=== PATIENT | female | born 1965 | race Caucasian/White ===

== ENCOUNTER → 2016-07-31 | Outpatient (CLI) | payer BC ==
--- NOTE | 2016-08-01 10:12 | MM ---
Reason for exam: screening (asymptomatic). Last mammogram was performed 1 year and 2 months ago. History: Patient had first child at age 31. Family history of breast cancer in mother at age 30. Took hormonal contraceptives beginning at age 16. Physical Findings: A clinical breast exam by your physician is recommended on an annual basis and results should be correlated with mammographic findings. MG Screening Mammo w CAD Bilateral CC and MLO view(s) were taken. Prior study comparison: May 21, 2015, bilateral MG screening mammo w CAD. March 30, 2014, bilateral MG screening mammo w CAD. March 27, 2013, bilateral digital screening mammo w/CAD. The breast tissue is heterogeneously dense. This may lower the sensitivity of mammography. There is no discrete abnormality. ASSESSMENT: Negative, BI-RAD 1 RECOMMENDATION: Routine screening mammogram of both breasts in 1 year.
== END | disposition home or self-care (01) ==
LOC: RADMAMWWP 16:26
PROVIDERS: ATTEND Obstetrics & Gynecology
DX: Z12.31 Encounter for screening mammogram for malignant neoplasm of breast (principal)

== ENCOUNTER → 2017-12-27 | Outpatient (CLI) | payer BC ==
--- NOTE | 2017-12-31 10:13 | MM ---
Reason for exam: screening (asymptomatic). Last mammogram was performed 1 year and 5 months ago. History: Patient had first child at age 31. Family history of breast cancer in mother at age 30. Took hormonal contraceptives beginning at age 16. Physical Findings: A clinical breast exam by your physician is recommended on an annual basis and results should be correlated with mammographic findings. MG Screening Mammo w CAD Bilateral CC and MLO view(s) were taken. Prior study comparison: July 31, 2016, bilateral MG screening mammo w CAD. May 25, 2015, left breast MG 3d work up w/cad LT. The breast tissue is heterogeneously dense. This may lower the sensitivity of mammography. There is no discrete abnormality. No significant changes when compared with prior studies. ASSESSMENT: Negative, BI-RAD 1 RECOMMENDATION: Routine screening mammogram of both breasts in 1 year.
== END | disposition home or self-care (01) ==
LOC: RADMAMWWP 16:12
PROVIDERS: ATTEND Family Medicine
DX: Z12.31 Encounter for screening mammogram for malignant neoplasm of breast (principal)
CPT/HCPCS: 77067

== ENCOUNTER 2018-02-20 09:33 | Day surgery (SDC) | payer BC ==
[2018-02-15 12:07] VITALS: BMI 22.2
[~2018-02-20 09:33] MED LIST: LACTATED RINGERS 1,000 ML IV SCH
--- NOTE | 2018-02-20 09:34 | P.GSHP ---
History of Present Illness H&P Date: 02/20/18 CHIEF COMPLAINT: Colon screen HISTORY OF PRESENT ILLNESS: The patient is a 52-year-old female who presents for colon screen. Lower endoscopy was offered for further evaluation and management. PAST MEDICAL HISTORY: Please see list. PAST SURGICAL HISTORY: Please see list. MEDICATIONS: Please see list. ALLERGIES: Please see list. SOCIAL HISTORY: No illicit drug use FAMILY HISTORY: No reports of Crohn disease or ulcerative colitis. REVIEW OF ORGAN SYSTEMS: CONSTITUTIONAL: No reports of fevers or chills. PHYSICAL EXAM: VITAL SIGNS: Stable GENERAL: Well-developed pleasant in no acute distress. HEENT: No scleral icterus. Extraocular movements grossly intact. Moist buccal mucosa. NECK: Supple without lymphadenopathy. CHEST: Unlabored respirations. Equal bilateral excursions. CARDIOVASCULAR: Regular rate and rhythm. Distal 2+ pulses. ABDOMEN: Soft, nontender, nondistended. MUSCULOSKELETAL: No clubbing, cyanosis, or edema. ASSESSMENT: 1. Colon screen. PLAN: 1. Recommend proceeding with a lower endoscopy Past Medical History Past Medical History: No Reported History Additional Past Medical History / Comment(s): SCREENING History of Any Multi-Drug Resistant Organisms: None Reported Past Surgical History: No Surgical Hx Reported Past Anesthesia/Blood Transfusion Reactions: No Reported Reaction Smoking Status: Never smoker - Past Family History Mother Family Medical History: No Reported History Medications and Allergies Home Medications Medication Instructions Recorded Confirmed Type No Known Home Medications 02/15/18 02/15/18 History Allergies Allergy/AdvReac Type Severity Reaction Status Date / Time No Known Allergies Allergy Verified 02/15/18 12:03
[2018-02-20 09:59] VITALS: RESP 16; TEMP 98
[2018-02-20] MEDS ORDERED: PROPOFOL 10 MG/ML 20 ML VIAL IV ONE (11:05)
[2018-02-20] MEDS ORDERED: LIDOCAINE 1% INJ 10MG/ML (20 ML MDV) ONE (11:05)
[2018-02-20 12:04] VITALS: BP 117/65; PULSE 64
--- NOTE | 2018-02-20 12:09 | P.PCN ---
Date of Procedure: 02/20/18 Description of Procedure: PREOPERATIVE DIAGNOSIS: Colonoscopy screening, first POSTOPERATIVE DIAGNOSIS: Colonoscopy screening, first Rectal polyp Sigmoid colon polyp OPERATION: Colonoscopy to the ileocecal valve and appendiceal orifice. Colonoscopy with multiple cold forceps biopsies. SURGEON: Caryn Thomas MD. ANESTHESIA: MAC. INDICATIONS: The patient is a 52-year-old female who presents for colonoscopy screening. Benefits and risks were described and informed consent was obtained. DESCRIPTION OF PROCEDURE: The patient had undergone Gatorade, MiraLAX and Dulcolax prep. She had been brought into the operating room and laid in the left lateral decubitus position. After adequate intravenous sedation, the rectum was examined with 2% lidocaine jelly. No external hemorrhoids were encountered. The rectal tone was within normal limits. No lesions were palpated in the rectal vault. An Olympus colonoscope was advanced until the ileocecal valve and appendiceal orifice were clearly viewed. The prep was fair with visualization of the mucosal folds. The scope was removed with visualization of each mucosal fold. No scattered diverticulosis was encountered. Colonic polyps were cold forcep biopsy. No evidence of focal colitis was found. Retroflexion of the scope demonstrated no internal hemorrhoids. The colon was desufflated. The patient had tolerated the procedure well. Withdrawal time was over 6 minutes. FINDINGS: No internal hemorrhoids No external hemorrhoids No arteriovenous malformations. Sigmoid diverticulosis. No focal colitis. Removal of 2 polyps: - Cold forceps biopsy at 20 cm from the anal verge, 4 mm polyp, sigmoid colon polyp - Cold forceps biopsy at 5 cm from the anal verge, 5 mm polyp, rectal polyp RECOMMENDATIONS: Lower endoscopy in 3 years2020 Plan - Discharge Summary New Discharge Prescriptions: No Action No Known Home Medications Discharge Medication List No Known Home Medications 02/15/18 [History] Follow up Appointment(s)/Referral(s): Caryn Thomas MD [STAFF PHYSICIAN] - As Needed Patient Instructions/Handouts: Colorectal Polyps (DC) Activity/Diet/Wound Care/Special Instructions: Repeat colonoscopy 3 years, 2020 Discharge Disposition: HOME SELF-CARE
== END 2018-02-20 12:29 | disposition home or self-care (01) ==
LOC: ORWHC2ENDO 09:33
PROVIDERS: ATTEND Surgery Plastic and Reconstructive Surgery
DX: Z12.11 Encounter for screening for malignant neoplasm of colon (principal); D12.5 Benign neoplasm of sigmoid colon; K62.1 Rectal polyp
CPT/HCPCS: 88305; 45380; J2001; J2704

== ENCOUNTER → 2019-05-06 | Outpatient (CLI) | payer BC ==
--- NOTE | 2019-05-07 11:32 | MM ---
Reason for exam: screening (asymptomatic). Last mammogram was performed 1 year and 4 months ago. History: Patient is postmenopausal and had first child at age 31. Family history of breast cancer in mother at age 30. Took hormonal contraceptives beginning at age 16. Physical Findings: A clinical breast exam by your physician is recommended on an annual basis and results should be correlated with mammographic findings. MG Screening Mammo w CAD Bilateral CC and MLO view(s) were taken. Prior study comparison: December 27, 2017, bilateral MG screening mammo w CAD. July 31, 2016, bilateral MG screening mammo w CAD. The breast tissue is heterogeneously dense. This may lower the sensitivity of mammography. Focal asymmetry lower inner left breast 8 o'clock 3cm from nipple. ASSESSMENT: Incomplete: need additional imaging evaluation, BI-RAD 0 RECOMMENDATION: Special view mammogram of the left breast. If lesion persists on supplemental views, image directed ultrasound is recommended. [facility] will attempt to contact patient to return for supplemental views and ultrasound if indicated.
== END | disposition home or self-care (01) ==
LOC: RADMAMWWP 15:38
PROVIDERS: ATTEND Family Medicine
DX: Z12.31 Encounter for screening mammogram for malignant neoplasm of breast (principal)
CPT/HCPCS: 77067

== ENCOUNTER → 2019-07-09 | Outpatient (CLI) | payer BC ==
--- NOTE | 2019-07-16 09:28 | MM ---
Reason for exam: additional evaluation requested from abnormal screening. Last mammogram was performed 2 months ago. History: Patient is postmenopausal and had first child at age 31. Family history of breast cancer in mother at age 30. Took hormonal contraceptives beginning at age 16. Physical Findings: Nurse did not find any significant physical abnormalities on exam. MG Work Up Mamm w CAD LT Spot compression CC, spot compression MLO, and LM view(s) were taken of the left breast. Prior study comparison: May 06, 2019, bilateral MG screening mammo w CAD. December 27, 2017, bilateral MG screening mammo w CAD. The breast tissue is heterogeneously dense. This may lower the sensitivity of mammography. Asymmetric breast tissue in the left breast not changed from 2016. No distinct lesion persists on additional views. These results were verbally communicated with the patient and result sheet given to the patient on 07/09/19. ASSESSMENT: Negative, BI-RAD 1 RECOMMENDATION: Return to routine screening mammogram schedule for both breasts.
== END | disposition home or self-care (01) ==
LOC: RADMAMWWP 08:47
PROVIDERS: ATTEND Family Medicine
DX: R92.8 Other abnormal and inconclusive findings on diagnostic imaging of breast (principal)
CPT/HCPCS: 77065

== ENCOUNTER → 2020-08-06 | Outpatient (CLI) | payer BC ==
--- NOTE | 2020-08-09 11:09 | MM ---
Reason for exam: screening (asymptomatic). Last mammogram was performed 1 year and 1 month ago. History: Patient is postmenopausal and had first child at age 31. Family history of breast cancer in maternal aunt at age 30. Took hormonal contraceptives for 14 years beginning at age 16. Physical Findings: A clinical breast exam by your physician is recommended on an annual basis and results should be correlated with mammographic findings. MG 3D Screening Mammo W/Cad Bilateral CC and MLO view(s) were taken. Prior study comparison: July 09, 2019, left breast MG work up mamm w CAD LT. May 06, 2019, bilateral MG screening mammo w CAD. The breast tissue is heterogeneously dense. This may lower the sensitivity of mammography. There is no discrete abnormality. No significant changes when compared with prior studies. ASSESSMENT: Negative, BI-RAD 1 RECOMMENDATION: Routine screening mammogram of both breasts in 1 year.
== END | disposition home or self-care (01) ==
LOC: RADMAMWWP 07:30
PROVIDERS: ATTEND Family Medicine
DX: Z12.31 Encounter for screening mammogram for malignant neoplasm of breast (principal); Z78.0 Asymptomatic menopausal state; Z80.3 Family history of malignant neoplasm of breast
CPT/HCPCS: 77063; 77067

== ENCOUNTER → 2022-02-07 | Outpatient (CLI) | payer BC ==
--- NOTE | 2022-02-08 07:43 | MM ---
Reason for Exam: Screening (asymptomatic). Last mammogram was performed 1 year(s) and 6 month(s) ago. Patient History: Menarche at age 12. First Full-Term at age 31. Late child-bearing (after 30). Postmenopausal. Patient has history of breast feeding. Hormonal Contraceptives for 14 years from age 16 until age 30. Maternal aunt had breast cancer, age 30. Risk Values: Erlinda 5 year model risk: 1.7%. NCI Lifetime model risk: 10.9%. Prior Study Comparison: 03/30/2014 Bilateral Screening Mammogram, [facility]. 05/21/2015 Bilateral Screening Mammogram, [facility]. 05/25/2015 Left Diagnostic Mammogram, [facility]. 07/31/2016 Bilateral Screening Mammogram, [facility]. 12/27/2017 Bilateral Screening Mammogram, [facility]. 05/06/2019 Bilateral Screening Mammogram, [facility] 07/09/2019 Left Diagnostic Mammogram, [facility]. 08/06/2020 Bilateral Screening Mammogram, [facility]. Tissue Density: The breast tissue is heterogeneously dense. This may lower the sensitivity of mammography. Findings: Analyzed By CAD. There is no suspicious group of microcalcifications or new suspicious mass in either breast. Overall Assessment: Negative, BI-RAD 1 Management: Screening Mammogram of both breasts in 1 year. Some advise bilateral breast ultrasound surveillance in patients with background dense tissue. A clinical breast exam by your physician is recommended on an annual basis and results should be correlated with mammographic findings. Electronically signed and approved by: Mitch Hennessy M.D.
== END | disposition home or self-care (01) ==
LOC: RADMAMWWP 07:02
PROVIDERS: ATTEND Family Medicine
DX: Z12.31 Encounter for screening mammogram for malignant neoplasm of breast (principal); Z78.0 Asymptomatic menopausal state; Z80.3 Family history of malignant neoplasm of breast
CPT/HCPCS: 77063; 77067

== ENCOUNTER 2022-03-30 06:41 | Day surgery (SDC) | payer BC ==
[2022-03-28 11:20] VITALS: BMI 21.9
[~2022-03-30 06:41] MED LIST changes: +LIDOCAINE 1% (10MG/ML) FOR IV START INTRADERMA PRN
[2022-03-30] MEDS ORDERED: ONDANSETRON 4 MG/2 ML VIAL IVP PRN (07:00)
[2022-03-30 07:15] VITALS: TEMP 98
[2022-03-30] MEDS ORDERED: PROPOFOL 10 MG/ML 20 ML VIAL IV ONE (07:40)
--- NOTE | 2022-03-30 07:42 | P.GSHP ---
History of Present Illness H&P Date: 03/30/22 CHIEF COMPLAINT: Colon screen HISTORY OF PRESENT ILLNESS: The patient is a 57-year-old female who presents for colon screen. Lower endoscopy was offered for further evaluation and management. PAST MEDICAL HISTORY: Please see list. PAST SURGICAL HISTORY: Please see list. MEDICATIONS: Please see list. ALLERGIES: Please see list. SOCIAL HISTORY: No illicit drug use FAMILY HISTORY: No reports of Crohn disease or ulcerative colitis. REVIEW OF ORGAN SYSTEMS: CONSTITUTIONAL: No reports of fevers or chills. PHYSICAL EXAM: VITAL SIGNS: Stable GENERAL: Well-developed pleasant in no acute distress. HEENT: No scleral icterus. Extraocular movements grossly intact. Moist buccal mucosa. NECK: Supple without lymphadenopathy. CHEST: Unlabored respirations. Equal bilateral excursions. CARDIOVASCULAR: Regular rate and rhythm. Distal 2+ pulses. ABDOMEN: Soft, nontender, nondistended. MUSCULOSKELETAL: No clubbing, cyanosis, or edema. ASSESSMENT: 1. Colon screen. PLAN: 1. Recommend proceeding with a lower endoscopy Past Medical History Past Medical History: No Reported History History of Any Multi-Drug Resistant Organisms: None Reported Additional Past Surgical History / Comment(s): left elbow bone chip removal as child, decompression surgery to neck 2001 Past Anesthesia/Blood Transfusion Reactions: No Reported Reaction Past Psychological History: No Psychological Hx Reported Smoking Status: Never smoker Past Alcohol Use History: Occasional Past Drug Use History: None Reported - Past Family History Mother Family Medical History: No Reported History Medications and Allergies Home Medications Medication Instructions Recorded Confirmed Type No Known Home Medications 02/15/18 03/28/22 History Allergies Allergy/AdvReac Type Severity Reaction Status Date / Time No Known Allergies Allergy Verified 03/28/22 11:16 Surgical - Exam Vital Signs Temp Pulse Resp BP Pulse Ox 98 F 53 L 20 117/78 99 03/30/22 07:10 03/30/22 07:10 03/30/22 07:10 03/30/22 07:10 03/30/22 07:10
--- NOTE | 2022-03-30 08:10 | P.PCN ---
Date of Procedure: 03/30/22 Description of Procedure: PREOPERATIVE DIAGNOSIS: Personal history of colon polyps POSTOPERATIVE DIAGNOSIS: Personal history of colon polyps Sigmoid volvulus OPERATION: Colonoscopy to the hepatic flexure SURGEON: Caryn Thomas MD. ANESTHESIA: MAC. INDICATIONS: The patient is a 57-year-old female who presents with personal history of colon polyps. Last colonoscopy 5 years ago. Benefits and risks were described and informed consent was obtained. DESCRIPTION OF PROCEDURE: The patient had undergone Miralax prep. The patient had been brought into the operating room and laid in the left lateral decubitus position. After adequate intravenous sedation, the rectum was examined with 2% lidocaine jelly. No external hemorrhoids were encountered. The rectal tone was within normal limits. No lesions were palpated in the rectal vault. An Olympus colonoscope was advanced through very redundant sigmoid colon prohibiting extension of the scope beyond the hepatic flexure. Abdominal wall pressure was used for advancement of the scope with minimal extension beyond flexure. The prep was poor to fair with moderate liquid brown stool limiting complete view of the colon mucosa. No scattered diverticulosis was encountered. No over 2 cm colonic polyps were found to the hepatic flexure. No evidence of focal colitis was found. Retroflexion of the scope demonstrated grade 1 internal hemorrhoids without active bleeding or inflammation. The colon was desufflated. The patient had tolerated the procedure well. Withdrawal time was over 6 minutes. FINDINGS: Aronchick preparation quality scale 3+ (1-5) Internal hemorrhoids, grade 1 No external prolapsed hemorrhoids. No arteriovenous malformations. No over 2 cm colonic polyps were found to the hepatic flexure No focal colitis. RECOMMENDATIONS: 1. Recommend immediate barium enema 2. Likely repeat colonoscopy in 3 years2024 Plan - Discharge Summary New Discharge Prescriptions: No Action No Known Home Medications Discharge Medication List No Known Home Medications 02/15/18 [History] Follow up Appointment(s)/Referral(s): Caryn Thomas MD [STAFF PHYSICIAN] - 04/18/22 Patient Instructions/Handouts: Barium Enema (DC), Colonoscopy (DC) Activity/Diet/Wound Care/Special Instructions: Repeat colonoscopy in 3 years, 2024 Discharge Disposition: HOME SELF-CARE
[2022-03-30 08:21] VITALS: RESP 15
[2022-03-30 09:14] VITALS: BP 122/75; PULSE 55
--- NOTE | 2022-03-30 11:45 | FL ---
EXAMINATION TYPE: FL barium enema DATE OF EXAM: 03/30/2022 11:12 AM CLINICAL INDICATION:Female, 57 years old with history of Sigmoid volvulus; COMPARISON: None TECHNIQUE: The procedure was explained and patient history elicited. All patient questions were answ ered prior to beginning. Multiple spot fluoroscopic images of the colon were obtained after the recta l administration of liquid barium as the contrast agent. Multiple postprocedural overhead images, w ere obtained and reviewed. Fluoroscopic time: 1 minute 59 seconds Fluoroscopic images: 0 Radiographs taken: 33 FINDINGS: The director of logistics abdominal radiograph demonstrates a normal bowel gas pattern without dilated loo ps of small or large bowel. There is no evidence for organomegaly or pneumoperitoneum. No abnormal calcifications. The visualized osseous structures are intact. There is redundant colon throughout the abdomen. There is overlapping of the colon and multiple areas which limits evaluation. Contour without evidence of focal stricture, internal filling defects, or a bnormal outpouching. Views of the cecum with manual compression are unremarkable. Postevacuation images are unremarkable. IMPRESSION: Limited exam secondary to redundant colon throughout the abdomen with overlapping opacified bowel. No gross evidence for stricture or filling defect.
== END 2022-03-30 10:00 | disposition home or self-care (01) ==
LOC: ORWHC2ENDO 06:41
PROVIDERS: ATTEND Surgery Plastic and Reconstructive Surgery
DX: K64.0 First degree hemorrhoids (principal); K56.2 Volvulus; Z86.010 Personal history of colon polyps; Z86.59 Personal history of other mental and behavioral disorders; Z98.890 Other specified postprocedural states
CPT/HCPCS: 74270; 45378; J2704

== ENCOUNTER → 2023-04-24 | Outpatient (CLI) | payer BC ==
--- NOTE | 2023-04-25 11:08 | MM ---
Reason for Exam: Screening (asymptomatic). Last mammogram was performed 1 year(s) and 2 month(s) ago. Patient History: Menarche at age 12. First Full-Term at age 31. Late child-bearing (after 30). Postmenopausal. Patient has history of breast feeding. Hormonal Contraceptives for 14 years from age 16 until age 30. Maternal aunt had breast cancer, age 30. Risk Values: Erlinda 5 year model risk: 1.8%. NCI Lifetime model risk: 10.5%. Prior Study Comparison: 07/31/2016 Bilateral Screening Mammogram, [facility]. 12/27/2017 Bilateral Screening Mammogram, [facility]. 05/06/2019 Bilateral Screening Mammogram, [facility]. 07/09/2019 Left Diagnostic Mammogram, [facility]. 08/06/2020 Bilateral Screening Mammogram, [facility]. 02/07/2022 Bilateral MG 3D screening mammo w/cad, [facility]. Tissue Density: The breast tissue is heterogeneously dense. This may lower the sensitivity of mammography. Findings: Analyzed By CAD. There is no suspicious group of microcalcifications or new suspicious mass. Overall Assessment: Negative, BI-RAD 1 Management: Screening Mammogram of both breasts in [address] [facility] will attempt to contact patient to return for supplemental views and ultrasound if indicated. Patient should continue monthly self-breast exams. A clinical breast exam by your physician is recommended on an annual basis. This exam should not preclude additional follow-up of suspicious palpable abnormalities. Note on Erlinda scores and lifetime risk: 1. A Erlinda score greater than 3% is considered moderate risk. If this is the case, consider specialist referral to assess eligibility for a risk reducing agent. 2. If overall lifetime risk for the development of breast cancer is 20% or higher, the patient may qualify for future screening with alternating mammogram and breast MRI. Electronically signed and approved by: Lanre Bazzi DO
== END | disposition home or self-care (01) ==
LOC: RADMAMWWP 07:00
PROVIDERS: ATTEND Family Medicine
DX: Z12.31 Encounter for screening mammogram for malignant neoplasm of breast (principal); Z78.0 Asymptomatic menopausal state; Z80.3 Family history of malignant neoplasm of breast
CPT/HCPCS: 77063; 77067

== ENCOUNTER → 2024-08-07 | Outpatient (CLI) | payer BC ==
--- NOTE | 2024-08-07 07:53 | MM ---
Reason for Exam: Screening (asymptomatic). Last mammogram was performed 1 year(s) and 4 month(s) ago. Patient History: Menarche at age 12. First Full-Term at age 31. Late child-bearing (after 30). Postmenopausal. Patient has history of breast feeding. Hormonal Contraceptives for 14 years from age 16 until age 30. Risk Values: Erlinda 5 year model risk: 1.9%. NCI Lifetime model risk: 10.2%. Prior Study Comparison: 08/06/2020 Bilateral Screening Mammogram, [facility]. 02/07/2022 Bilateral MG 3D screening mammo w/cad, [facility]. 04/24/2023 Bilateral MG 3D screening mammo w/cad, [facility]. Tissue Density: The breasts are heterogeneously dense, which may obscure small masses. Findings: Analyzed By CAD. Right breast: There is no suspicious group of microcalcifications or new suspicious mass. Benign-appearing right breast calcification. Left breast: There is no suspicious group of microcalcifications or new suspicious mass. Benign oval mass left breast lateral aspect anterior depth on CC view. Overall Assessment: Benign, BI-RAD 2 Management: Screening Mammogram of both breasts in [address] [facility] will attempt to contact patient to return for supplemental views and ultrasound if indicated. Patient should continue monthly self-breast exams. A clinical breast exam by your physician is recommended on an annual basis. This exam should not preclude additional follow-up of suspicious palpable abnormalities. Note on Erlinda scores and lifetime risk: 1. A Erlinda score greater than 3% is considered moderate risk. If this is the case, consider specialist referral to assess eligibility for a risk reducing agent. 2. If overall lifetime risk for the development of breast cancer is 20% or higher, the patient may qualify for future screening with alternating mammogram and breast MRI. [facility], , 08/07/2024 7:50 AM. Electronically signed and approved by: Lanre Bazzi DO
== END | disposition home or self-care (01) ==
LOC: RADMAMWWP 07:06
PROVIDERS: ATTEND Family Medicine
DX: Z12.31 Encounter for screening mammogram for malignant neoplasm of breast (principal); R92.333 Mammographic heterogeneous density, bilateral breasts; Z78.0 Asymptomatic menopausal state; Z92.0 Personal history of contraception
CPT/HCPCS: 77063; 77067